=== PATIENT | female | born 1930 | race Caucasian/White ===

== ENCOUNTER 2020-01-18 21:46 | Inpatient (IN) | payer MEDICARE, BC ==
[~2020-01-18] VITALS: Ht 160 cm; Wt 71.7 kg
[~2020-01-18 21:46] MED LIST: AMIO200T61 PO; CLOB15CR4 TP; DIPH-186 PO; FURO40TA4 PO; HYDR-3964 PO; LANTUS SUBCUT; LISI-600 PO; MOME45CR3 TP
--- NOTE | 2020-01-18 21:59 | NUR ---
MD at bedside to evaluate pt. Course of event reviewed with provider. Pt. answered examination quesetions without difficulty. Pt. to have x-ray of affected extremity. No CT scan required at this time per MD. Trauma alert called off.
[2020-01-18] MEDS ORDERED: TETanus/Pertussis (Acell)/Diphther VAC/PF (Tdap-Adult) 0.5ml syringe IMVAC ONE (22:05)
[2020-01-18] MEDS ORDERED: ondansetron/PF 4mg/2ml inj IV PRN ×2 (22:05→23:35)
[2020-01-18] MEDS ORDERED: morphine 4 MG/ML inj SYRINge IV PRN (22:05)
[2020-01-18 22:17] LABS: BASOPHILS # (AUTO) 0.1 X10'3 (0-0.2); EOSINOPHILS # (AUTO) 0.2 X10'3 (0-0.9); EOSINOPHILS % (AUTO) 3.7 % (0-6); HEMATOCRIT 35.5 % (35.0-45.0); HEMOGLOBIN 11.7 g/dl (12.0-16.0); LYMPHOCYTES # (AUTO) 1.4 X10'3 (1.1-4.8); LYMPHOCYTES % (AUTO) 22.9 % (21-51); MEAN CORPUSCULAR HEMOGLOBIN 26.3 PG (27.0-31.0); MEAN CORPUSCULAR HGB CONC 32.9 g/dL (33.0-36.5); MEAN CORPUSCULAR VOLUME 79.9 FL (78-98); MEAN PLATELET VOLUME 7.3 FL (7.4-10.4); MONOCYTES # (AUTO) 0.5 X10'3 (0-0.9); MONOCYTES % (AUTO) 8.8 % (2-12); NEUTROPHILS # (AUTO) 3.8 X10'3 (1.8-7.7); NEUTROPHILS % (AUTO) 63.6 % (42-75); PLATELET COUNT 277 X10'3 (140-440); RED BLOOD COUNT 4.44 X10'6 (4.20-5.60); RED CELL DISTRIBUTION WIDTH 20.2 % (11.5-14.5); WHITE BLOOD COUNT 5.9 X10'3 (4.5-11.0)
[2020-01-18 22:28] LABS: PARTIAL THROMBOPLASTIN TIME 33 SECONDS (22-32)
[2020-01-18 22:32] LABS: ALANINE AMINOTRANSFERASE 54 U/L (12-78); ALBUMIN 3.6 G/DL (3.4-5.0); ALKALINE PHOSPHATASE 105 IU/L (46-116); ANION GAP 9 (8-16); ASPARTATE AMINO TRANSFERASE 29 U/L (10-37); BILIRUBIN,TOTAL 0.3 MG/DL (0.1-1.0); BLOOD UREA NITROGEN 33 MG/DL (7-18); BUN/CREATININE RATIO 14.7 (6.6-38.0); CALCIUM 9.1 MG/DL (8.5-10.1); CHLORIDE 107 MMOL/L (99-107); CREATININE 2.25 MG/DL (0.40-0.90); GLUCOSE 204 MG/DL (70-104); POTASSIUM 4.6 MMOL/L (3.5-5.1); SODIUM 142 MMOL/L (135-145); TOTAL CARBON DIOXIDE 26.5 MMOL/L (24-32); TOTAL PROTEIN 7.1 G/DL (6.4-8.2); eGFR 21 ML/MIN
[2020-01-18] MEDS ORDERED: phytonadione inj. 10 MG in normal saline 100ml IV soln 99 ML IV ONE (23:10)
[2020-01-18] MEDS ORDERED: LANTUS SQ (23:13)
[2020-01-18] MEDS ORDERED: FURO40TA4 PO (23:13)
[2020-01-18] MEDS ORDERED: WARF1TAB9 PO (23:13)
[2020-01-18] MEDS ORDERED: ERGO500054 PO (23:13)
[2020-01-18] MEDS ORDERED: mag hydrox/Alum hydrox/simeth 30ml oral suspension PO PRN (23:35)
[2020-01-18] MEDS ORDERED: acetaminophen 325mg tablet PO PRN (23:35)
[2020-01-18] MEDS ORDERED: magnesium 2GM in 50ml NS 50 ML IV PRN (23:35)
[2020-01-18] MEDS ORDERED: magnesium hydroxide 30ml (MOM) UD suspension PO PRN (23:35)
[2020-01-18] MEDS ORDERED: potassium Cl 20 mEq SR tablet PO PRN ×2 (23:35)
[2020-01-18] MEDS ORDERED: LIDOcaine 2% 10ml TOPICAL JELLY (Urojet) TP ONE (23:35)
[2020-01-18] MEDS ORDERED: magnesium 4gm in 100ml NS 100 ML IV PRN (23:35)
[2020-01-18] MEDS ORDERED: potassium CL 10mEq/100ml bag 100 ML IV PRN ×2 (23:35)
[2020-01-18] MEDS ORDERED: magnesium Cl slow-release 64mg tablet PO PRN (23:35)
[2020-01-18 23:39] LABS: CLARITY,URINE CLEAR (Clear); COLOR,URINE YELLOW (Yellow); GLUCOSE, URINE NEGATIVE (Neg); KETONES,URINE NEGATIVE (Neg); LEUKOCYTE ESTERASE ,URINE NEGATIVE (Neg); NITRITES, URINE NEGATIVE (Neg); OCCULT BLOOD,URINE NEGATIVE (Neg); PROTEIN,URINE TRACE mg/dl (Neg); UROBILINOGEN,URINE 0.2 E.U/dL (0.2-1.0)
[2020-01-18 23:44] LABS: UA COLLECTION TYPE FOLEY CATH
[2020-01-18] MEDS: normal saline 1000ml 1,000 ML IV SCH (23:46)
[2020-01-19] VITALS (21 sets, daily range): BP systolic 136–199; BP diastolic 37–58
[2020-01-19] LABS: BACTERIA,URINE NONE SEEN /HPF (Neg); MUCUS STRANDS FEW /LPF (Neg); RBC,URINE 0-2 /HPF (0-2); SQUAMOUS EPITHELIAL CELL,UR FEW /LPF (FEW); TRANSITIONAL EPI CELLS,URINE FEW /HPF; WBC,URINE 0-4 /HPF (0-4)
--- NOTE | 2020-01-19 01:21 | NUR ---
Report given to me by Jose MASON and I will give report to Anabel once she is available.
--- NOTE | 2020-01-19 01:37 | NUR ---
Received report from Lakesha MASON.
[2020-01-19 01:40] LABS: ANISOCYTOSIS 3+; MICROCYTOSIS 1+; PLATELET ESTIMATE NORMAL
[2020-01-19] MEDS ORDERED: glucagon, human recombinant 1mg kit SUBCUT PRN (02:35)
[2020-01-19] MEDS ORDERED: MESSAGE TO PHARMACY PO ONE (02:35)
[2020-01-19] MEDS ORDERED: dextrose 50%-water 50ml dispensing syringe IV PRN ×2 (02:35)
[2020-01-19] MEDS ORDERED: dextrose ORAL solution 15 GM/59 ML bottle PO PRN ×2 (02:35)
[2020-01-19 03:16] LABS: HEMOGLOBIN A1C 7.9 % (4.5-6.2)
[2020-01-19] MEDS: morphine 2 MG/ML inj. syringe IV PRN ×2 (04:35→15:24)
--- NOTE | 2020-01-19 05:24 | NUR ---
PAGER ID: [phone] MESSAGE: Anabel canelo [phone]. Giuliana Astudillo in room 4009A. BP in ER 242/68, 206/57. BP now 209/50, 211/55, 204/53. Takes lisinopril at home. Pt is NPO. Can I get something PRN IV for high BP. Thank you
[2020-01-19] MEDS ORDERED: metoprolol tartrate 1mg/ml inj IV ONE (05:25)
[2020-01-19] MEDS: hydrALAZINE 20mg/ml inj. IV PRN (05:35)
--- NOTE | 2020-01-19 05:39 | NUR ---
I notified Dr. Guevara that we are unable to administer the IV Lopressor for b/p management on the Ortho floor. I informed her that we can give the Hydralazine IV that is scheduled PRN for B/P control. She said to give the Hydralazine for now and see what it does and if other b/p management is needed to call for further orders.
--- NOTE | 2020-01-19 06:26 | NUR ---
Problems reprioritized. Patient report given, questions answered & plan of care reviewed with Lydia MASON.
--- NOTE | 2020-01-19 06:41 | NUR ---
Received report from Anabel MASON
[2020-01-19 06:46] LABS: BASOPHILS % (AUTO) 0.2 % (0-1); EOSINOPHILS % (AUTO) 0 % (0-6); HEMATOCRIT 30.5 % (35.0-45.0); LYMPHOCYTES # (AUTO) 0.6 X10'3 (1.1-4.8); LYMPHOCYTES % (AUTO) 4.8 % (21-51); MEAN CORPUSCULAR HEMOGLOBIN 26.4 PG (27.0-31.0); MEAN CORPUSCULAR HGB CONC 32.6 g/dL (33.0-36.5); MEAN CORPUSCULAR VOLUME 80.9 FL (78-98); MEAN PLATELET VOLUME 7.5 FL (7.4-10.4); MONOCYTES # (AUTO) 0.6 X10'3 (0-0.9); MONOCYTES % (AUTO) 4.9 % (2-12); NEUTROPHILS # (AUTO) 10.8 X10'3 (1.8-7.7); NEUTROPHILS % (AUTO) 90.1 % (42-75); PLATELET COUNT 241 X10'3 (140-440); RED BLOOD COUNT 3.77 X10'6 (4.20-5.60); WHITE BLOOD COUNT 11.9 X10'3 (4.5-11.0)
[2020-01-19 07:15] LABS: ALANINE AMINOTRANSFERASE 54 U/L (12-78); ALBUMIN 3.3 G/DL (3.4-5.0); ALBUMIN/GLOBULIN RATIO 1.1 (1.1-1.5); ALKALINE PHOSPHATASE 86 IU/L (46-116); ANION GAP 8 (8-16); ASPARTATE AMINO TRANSFERASE 32 U/L (10-37); BILIRUBIN,TOTAL 0.5 MG/DL (0.1-1.0); BLOOD UREA NITROGEN 30 MG/DL (7-18); BUN/CREATININE RATIO 14.6 (6.6-38.0); CALCIUM 8.7 MG/DL (8.5-10.1); CHLORIDE 109 MMOL/L (99-107); CREATININE 2.06 MG/DL (0.40-0.90); GLUCOSE 238 MG/DL (70-104); MAGNESIUM 1.9 MG/DL (1.5-2.4); POTASSIUM 5.1 MMOL/L (3.5-5.1); SODIUM 144 MMOL/L (135-145); TOTAL CARBON DIOXIDE 26.9 MMOL/L (24-32); TOTAL PROTEIN 6.4 G/DL (6.4-8.2); eGFR 23 ML/MIN
[2020-01-19] MEDS: K and/or MAG REPLACEMENT MC SCH ×2 (08:00→20:00)
[2020-01-19] MEDS: lisinopril 20mg tablet PO SCH ×2 (08:02→20:36)
[2020-01-19] MEDS: amiodarone 200mg tablet PO SCH (08:02)
[2020-01-19] MEDS: LORazepam 0.5 MG tablet PO PRN ×2 (09:29→20:37)
[2020-01-19] MEDS: normal saline 1000ml 1,000 ML IV SCH ×3 (09:32→22:35)
[2020-01-19] MEDS ORDERED: meperidine/PF 25mg/ml syringe IV PRN ×3 (17:50)
[2020-01-19] MEDS ORDERED: ringers solution, lacted 1,000 ML IV SCH (17:50)
[2020-01-19] MEDS ORDERED: proCHLORperazine 10 MG/2 ml inj IV PRN (17:50)
[2020-01-19] MEDS ORDERED: morphine 4 MG/ML inj SYRINge IV PRN (17:50)
[2020-01-19] MEDS ORDERED: ondansetron/PF 4mg/2ml inj IV PRN (17:50)
[2020-01-19] MEDS ORDERED: morphine 2 MG/ML inj. syringe IV PRN (17:50)
[2020-01-19] MEDS ORDERED: midazolam 2 mg/2 ml injection ONE (18:00)
[2020-01-19] MEDS ORDERED: fentaNYL/PF 50MCG/1 ML 2ML syringe ONE (18:00)
--- NOTE | 2020-01-19 18:16 | NUR ---
Patient in room ORTHO 4009. I have received report from Lydia MASON and had the opportunity to ask questions and assume patient care.
[2020-01-19] MEDS ORDERED: ceFAZolin 1000mg inj ONE ×2 (18:30)
[2020-01-19] MEDS ORDERED: ePHEDrine 50MG/ML INJ. ONE (18:45)
--- NOTE | 2020-01-19 19:18 | NUR ---
Received from OR via BED, accompanied by Anesthesiologist DR NORWOOD and report given by Anesthesiologist. PT DROWSY, DENIES PAIN, RIGHT HIP AND UPPER THIGH W/PRANAV SMITH CDI, DERMATOME LEVEL L-1. Addendum: 01/19/20 at 1950 by Jessica Rangel RN Amended: Links added.
--- NOTE | 2020-01-19 19:57 | NUR ---
Received report from Jessica MASON in recovery. Patient will be brought to O/N.
--- NOTE | 2020-01-19 20:18 | NUR ---
Report called to receiving nurse. Transferred via BED, NO Belongings, RECEIVING RN AT BEDSIDE TO RECEIVE PT, BLL, CALL LIGHT GIVEN, SIDE RAILS UP X 2. Special Issues communicated to receiving nurse. YES. Addendum: 01/19/20 at 2027 by Jessica Rangel RN Amended: Links added.
--- NOTE | 2020-01-19 20:21 | NUR ---
Received patient from recovery. She is in bed resting. In no apparent distress.
[2020-01-19] MEDS: insulin glargine (Lantus) pen - multi-dose SQ SCH (21:42)
[2020-01-19] MEDS: vancomycin/NS 1 GM ADD-VANTAGE 250 ML IV SCH (22:33)
[2020-01-20 00:15] VITALS: BP 170/54
--- NOTE | 2020-01-20 00:22 | NUR ---
PAGER ID: [phone] MESSAGE: Anabel lemos [phone], Giuliana Astudillo in room 4009A is having a lot of pain. You had ordered morphine for her pain last night but the patient would like [place] instead because that is what she takes at home. Thank you
[2020-01-20] MEDS: HYDROcodone/acetaminophen 5mg/325mg tablet PO PRN ×2 (00:44→16:24)
[2020-01-20 02:00] VITALS: BP 151/40
[2020-01-20 06:00] VITALS: BP 139/53
--- NOTE | 2020-01-20 06:09 | NUR ---
Problems reprioritized. Patient report given, questions answered & plan of care reviewed with Morena MASON.
[2020-01-20 07:00] LABS: BASOPHILS % (AUTO) 0.5 % (0-1); EOSINOPHILS % (AUTO) 0.3 % (0-6); HEMATOCRIT 26.9 % (35.0-45.0); HEMOGLOBIN 8.6 g/dl (12.0-16.0); LYMPHOCYTES # (AUTO) 0.9 X10'3 (1.1-4.8); LYMPHOCYTES % (AUTO) 8.3 % (21-51); MEAN CORPUSCULAR HEMOGLOBIN 26.3 PG (27.0-31.0); MEAN CORPUSCULAR HGB CONC 32.1 g/dL (33.0-36.5); MEAN CORPUSCULAR VOLUME 81.9 FL (78-98); MEAN PLATELET VOLUME 7.4 FL (7.4-10.4); MONOCYTES # (AUTO) 1.2 X10'3 (0-0.9); MONOCYTES % (AUTO) 11.2 % (2-12); NEUTROPHILS # (AUTO) 8.4 X10'3 (1.8-7.7); NEUTROPHILS % (AUTO) 79.7 % (42-75); PLATELET COUNT 193 X10'3 (140-440); RED BLOOD COUNT 3.29 X10'6 (4.20-5.60); RED CELL DISTRIBUTION WIDTH 20.2 % (11.5-14.5); WHITE BLOOD COUNT 10.6 X10'3 (4.5-11.0)
[2020-01-20 07:23] LABS: ALANINE AMINOTRANSFERASE 38 U/L (12-78); ALBUMIN 2.7 G/DL (3.4-5.0); ALBUMIN/GLOBULIN RATIO 0.9 (1.1-1.5); ALKALINE PHOSPHATASE 70 IU/L (46-116); ANION GAP 7 (8-16); ASPARTATE AMINO TRANSFERASE 22 U/L (10-37); BILIRUBIN,TOTAL 0.5 MG/DL (0.1-1.0); BLOOD UREA NITROGEN 22 MG/DL (7-18); BUN/CREATININE RATIO 12.4 (6.6-38.0); CALCIUM 8.3 MG/DL (8.5-10.1); CHLORIDE 112 MMOL/L (99-107); CREATININE 1.77 MG/DL (0.40-0.90); GLUCOSE 176 MG/DL (70-104); MAGNESIUM 1.8 MG/DL (1.5-2.4); POTASSIUM 4.6 MMOL/L (3.5-5.1); SODIUM 145 MMOL/L (135-145); TOTAL CARBON DIOXIDE 25.6 MMOL/L (24-32); TOTAL PROTEIN 5.7 G/DL (6.4-8.2); eGFR 27 ML/MIN
[2020-01-20] MEDS: vancomycin/NS 1 GM ADD-VANTAGE 250 ML IV SCH (07:43)
[2020-01-20 07:48] LABS: PLATELET ESTIMATE NORMAL
[2020-01-20] MEDS: amiodarone 200mg tablet PO SCH (07:48)
[2020-01-20] MEDS: lisinopril 20mg tablet PO SCH ×2 (07:48→20:46)
[2020-01-20 07:49] LABS: ANISOCYTOSIS 3+; LARGE PLATELETS FEW
[2020-01-20] MEDS: insulin Lispro (HumaLOG) vial - multi-dose SQ SCH ×2 (09:08→14:07)
[2020-01-20] MEDS ORDERED: ondansetron 4mg rapidly disintigrating tab PO PRN (13:45)
--- NOTE | 2020-01-20 15:06 | NUR ---
DM consult, A1c 7.9; met at bedside and given written DM education handout with verbal review. Pt had c/o constipation r/t pain medication, takes miralax at home; spoke with bedside RN states that she has miralax available HS. Addendum: 01/20/20 at [address] Amended: Links added.
[2020-01-20 18:00] VITALS: BP 167/68
[2020-01-20] MEDS: K and/or MAG REPLACEMENT MC SCH (20:00)
[2020-01-20] MEDS: insulin glargine (Lantus) pen - multi-dose SQ SCH (20:51)
[2020-01-20] MEDS: polyethylene glycol 3350 17gm powd pack PO PRN (20:53)
[2020-01-20 22:00] VITALS: BP 123/100
[2020-01-21] MEDS: HYDROcodone/acetaminophen 5mg/325mg tablet PO PRN ×3 (00:29→09:11)
[2020-01-21] MEDS: normal saline 1000ml 1,000 ML IV SCH ×3 (01:32→21:32)
[2020-01-21 06:00] VITALS: BP 127/56
[2020-01-21] MEDS: K and/or MAG REPLACEMENT MC SCH ×2 (08:00→20:00)
[2020-01-21 08:34] LABS: BASOPHILS # (AUTO) 0.1 X10'3 (0-0.2); BASOPHILS % (AUTO) 0.6 % (0-1); EOSINOPHILS # (AUTO) 0.2 X10'3 (0-0.9); EOSINOPHILS % (AUTO) 1.7 % (0-6); HEMOGLOBIN 8.4 g/dl (12.0-16.0); LYMPHOCYTES # (AUTO) 1.2 X10'3 (1.1-4.8); LYMPHOCYTES % (AUTO) 11.9 % (21-51); MEAN CORPUSCULAR HEMOGLOBIN 26.6 PG (27.0-31.0); MEAN CORPUSCULAR HGB CONC 32.4 g/dL (33.0-36.5); MEAN CORPUSCULAR VOLUME 82.1 FL (78-98); MEAN PLATELET VOLUME 7.3 FL (7.4-10.4); MONOCYTES % (AUTO) 9.3 % (2-12); NEUTROPHILS # (AUTO) 7.9 X10'3 (1.8-7.7); NEUTROPHILS % (AUTO) 76.5 % (42-75); PLATELET COUNT 225 X10'3 (140-440); RED BLOOD COUNT 3.17 X10'6 (4.20-5.60); RED CELL DISTRIBUTION WIDTH 20.2 % (11.5-14.5); WHITE BLOOD COUNT 10.3 X10'3 (4.5-11.0)
[2020-01-21] MEDS: insulin Lispro (HumaLOG) vial - multi-dose SQ SCH ×3 (08:51→19:18)
[2020-01-21] MEDS: amiodarone 200mg tablet PO SCH (08:52)
[2020-01-21] MEDS: lisinopril 20mg tablet PO SCH ×2 (08:52→19:21)
[2020-01-21 09:14] LABS: ALANINE AMINOTRANSFERASE 30 U/L (12-78); ALBUMIN 2.5 G/DL (3.4-5.0); ALBUMIN/GLOBULIN RATIO 0.8 (1.1-1.5); ALKALINE PHOSPHATASE 69 IU/L (46-116); ANION GAP 9 (8-16); ASPARTATE AMINO TRANSFERASE 19 U/L (10-37); BILIRUBIN,TOTAL 0.5 MG/DL (0.1-1.0); BLOOD UREA NITROGEN 22 MG/DL (7-18); BUN/CREATININE RATIO 12.4 (6.6-38.0); CALCIUM 8.5 MG/DL (8.5-10.1); CHLORIDE 108 MMOL/L (99-107); CREATININE 1.78 MG/DL (0.40-0.90); GLUCOSE 184 MG/DL (70-104); MAGNESIUM 1.8 MG/DL (1.5-2.4); POTASSIUM 4.5 MMOL/L (3.5-5.1); SODIUM 141 MMOL/L (135-145); TOTAL CARBON DIOXIDE 24.5 MMOL/L (24-32); TOTAL PROTEIN 5.8 G/DL (6.4-8.2); eGFR 27 ML/MIN
[2020-01-21 10:00] VITALS: BP 128/34
[2020-01-21 10:40] LABS: PLATELET ESTIMATE NORMAL
[2020-01-21 10:41] LABS: ANISOCYTOSIS 3+; HYPOCHROMASIA 1+
[2020-01-21] MEDS: polyethylene glycol 3350 17gm powd pack PO PRN (11:58)
[2020-01-21] MEDS: enoxaparin 40mg/0.4ml syringe SUBCUT SCH (12:11)
[2020-01-21 18:00] VITALS: BP 154/40
--- NOTE | 2020-01-21 18:27 | NUR ---
Problems reprioritized. Patient report given, questions answered & plan of care reviewed with Anjali.
[2020-01-21] MEDS: insulin glargine (Lantus) pen - multi-dose SQ SCH (21:22)
[2020-01-21 22:00] VITALS: BP 181/42
--- NOTE | 2020-01-22 | NUR ---
PT C/O ITCHNESS UNDER SCD'S AND REQUESTED TO TAKE THEM OFF
[2020-01-22] MEDS: HYDROcodone/acetaminophen 5mg/325mg tablet PO PRN (05:14)
[2020-01-22 06:00] VITALS: BP 189/43
--- NOTE | 2020-01-22 06:00 | NUR ---
Patient in room ORTHO 4008. I have received report from Frida MASON and had the opportunity to ask questions and assume patient care.
[2020-01-22] MEDS: hydrALAZINE 20mg/ml inj. IV PRN (06:08)
[2020-01-22 06:09] VITALS: BP 171/47
--- NOTE | 2020-01-22 06:30 | NUR ---
Problems reprioritized. Patient report given, questions answered & plan of care reviewed with ISABELLA HANSON.
[2020-01-22] MEDS: normal saline 1000ml 1,000 ML IV SCH (07:32)
[2020-01-22 07:35] LABS: BASOPHILS % (AUTO) 0.4 % (0-1); EOSINOPHILS # (AUTO) 0.1 X10'3 (0-0.9); EOSINOPHILS % (AUTO) 1.6 % (0-6); HEMATOCRIT 24.5 % (35.0-45.0); LYMPHOCYTES # (AUTO) 0.9 X10'3 (1.1-4.8); LYMPHOCYTES % (AUTO) 10.2 % (21-51); MEAN CORPUSCULAR HEMOGLOBIN 26.4 PG (27.0-31.0); MEAN CORPUSCULAR HGB CONC 32.8 g/dL (33.0-36.5); MEAN CORPUSCULAR VOLUME 80.4 FL (78-98); MEAN PLATELET VOLUME 7.5 FL (7.4-10.4); MONOCYTES # (AUTO) 0.8 X10'3 (0-0.9); MONOCYTES % (AUTO) 9.5 % (2-12); NEUTROPHILS # (AUTO) 6.6 X10'3 (1.8-7.7); NEUTROPHILS % (AUTO) 78.3 % (42-75); PLATELET COUNT 235 X10'3 (140-440); RED BLOOD COUNT 3.05 X10'6 (4.20-5.60); RED CELL DISTRIBUTION WIDTH 19.5 % (11.5-14.5); WHITE BLOOD COUNT 8.5 X10'3 (4.5-11.0)
[2020-01-22] MEDS: enoxaparin 40mg/0.4ml syringe SUBCUT SCH (07:35)
[2020-01-22] MEDS: lisinopril 20mg tablet PO SCH (07:35)
[2020-01-22] MEDS: amiodarone 200mg tablet PO SCH (07:35)
[2020-01-22 07:53] LABS: ALANINE AMINOTRANSFERASE 25 U/L (12-78); ALBUMIN 2.4 G/DL (3.4-5.0); ALBUMIN/GLOBULIN RATIO 0.7 (1.1-1.5); ALKALINE PHOSPHATASE 71 IU/L (46-116); ANION GAP 6 (8-16); ASPARTATE AMINO TRANSFERASE 16 U/L (10-37); BILIRUBIN,TOTAL 0.4 MG/DL (0.1-1.0); BLOOD UREA NITROGEN 30 MG/DL (7-18); BUN/CREATININE RATIO 17.1 (6.6-38.0); CALCIUM 8.4 MG/DL (8.5-10.1); CHLORIDE 107 MMOL/L (99-107); CREATININE 1.75 MG/DL (0.40-0.90); GLUCOSE 155 MG/DL (70-104); MAGNESIUM 2.3 MG/DL (1.5-2.4); POTASSIUM 4.4 MMOL/L (3.5-5.1); SODIUM 140 MMOL/L (135-145); TOTAL CARBON DIOXIDE 26.9 MMOL/L (24-32); TOTAL PROTEIN 5.7 G/DL (6.4-8.2); eGFR 27 ML/MIN
[2020-01-22] MEDS: K and/or MAG REPLACEMENT MC SCH (08:00)
[2020-01-22] MEDS: insulin Lispro (HumaLOG) vial - multi-dose SQ SCH (09:28)
[2020-01-22 09:49] LABS: ANISOCYTOSIS 3+; PLATELET ESTIMATE NORMAL
[2020-01-22 09:50] LABS: HYPOCHROMASIA 1+
[2020-01-22 10:00] VITALS: BP 146/37
--- NOTE | 2020-01-22 12:26 | NUR ---
Problems reprioritized. Patient report given, questions answered & plan of care reviewed with Alfredo MASON at [facility].
== END 2020-01-22 12:50 | DRG 480 ==
LOC: ER 21:47 → ED HOLD 23:32 → ORTHO 4S 01-19 01:59
PROVIDERS: ADMIT Family Medicine; ATTEND Internal Medicine
PROC: 30233N1 Transfusion of Nonautologous Red Blood Cells into Peripheral Vein, Percutaneous Approach (ICD-10-PCS; 2020-01-19)
PROC: 5A09357 Assistance with Respiratory Ventilation, Less than 24 Consecutive Hours, Continuous Positive Airway Pressure (ICD-10-PCS; 2020-01-19)
PROC: 0QS606Z Reposition Right Upper Femur with Intramedullary Internal Fixation Device, Open Approach (ICD-10-PCS; principal; 2020-01-19 18:12)
PROC: 5A09357 Assistance with Respiratory Ventilation, Less than 24 Consecutive Hours, Continuous Positive Airway Pressure (ICD-10-PCS; 2020-01-20)
PROC: 5A09357 Assistance with Respiratory Ventilation, Less than 24 Consecutive Hours, Continuous Positive Airway Pressure (ICD-10-PCS; 2020-01-22)
DX: S72.144A Nondisplaced intertrochanteric fracture of right femur, initial encounter for closed fracture (principal); N17.0 Acute kidney failure with tubular necrosis; D62 Acute posthemorrhagic anemia; I10 Essential (primary) hypertension; E11.9 Type 2 diabetes mellitus without complications; I48.91 Unspecified atrial fibrillation; I48.0 Paroxysmal atrial fibrillation; S51.811A Laceration without foreign body of right forearm, initial encounter; Z79.01 Long term (current) use of anticoagulants; Z79.899 Other long term (current) drug therapy; Z82.49 Family history of ischemic heart disease and other diseases of the circulatory system; Z82.5 Family history of asthma and other chronic lower respiratory diseases; Z83.3 Family history of diabetes mellitus; Z95.1 Presence of aortocoronary bypass graft; Y93.89 Activity, other specified; Y99.8 Other external cause status; W01.0XXA Fall on same level from slipping, tripping and stumbling without subsequent striking against object, initial encounter; Y92.000 Kitchen of unspecified non-institutional (private) residence as the place of occurrence of the external cause; E86.0 Dehydration
CPT/HCPCS: 36415; 36430; 71045; 73502; 76000; 80053; 81001; 82948; 83036; 83735; 85025; 85610; 85730; 86885; 86900; 86901; 87081; 90715; 93005; 97110; 97112; 97116; 97161; 97530; 99285; A4215; A6258; A6449; A7000; C1713; G0378; J0360; J0690; J1650; J1815; J2250; J2270; J2405; J3010; J3370; J3430; J7030; P9059

== ENCOUNTER 2020-10-24 11:28 | Emergency (ER) | payer MEDICARE, BC ==
[~2020-10-24] VITALS: Ht 160 cm; Wt 61.4 kg
[~2020-10-24 11:28] MED LIST changes: -CLOB15CR4 TP; -DIPH-186 PO; +ERGO500054 PO; -HYDR-3964 PO; +LANTUS SQ; -LANTUS SUBCUT; -LISI-600 PO; +LISI20TA28 PO; -MOME45CR3 TP; +WARF1TAB9 PO
[2020-10-24] MEDS ORDERED: lactulose 20gm/30ml cup PO ONE (12:00)
[2020-10-24] MEDS ORDERED: normal saline 1000ML IV soln IVB ONE (12:00)
[2020-10-24] MEDS ORDERED: magnesium hydroxide 30ml (MOM) UD suspension PO ONE (12:00)
[2020-10-24 12:14] LABS: BASOPHILS % (AUTO) 0.5 % (0-1); EOSINOPHILS # (AUTO) 0.1 X10'3 (0-0.9); EOSINOPHILS % (AUTO) 1.5 % (0-6); HEMATOCRIT 36.5 % (35.0-45.0); HEMOGLOBIN 11.9 g/dl (12.0-16.0); LYMPHOCYTES # (AUTO) 0.8 X10'3 (1.1-4.8); LYMPHOCYTES % (AUTO) 13.2 % (21-51); MEAN CORPUSCULAR HEMOGLOBIN 27.5 PG (27.0-31.0); MEAN CORPUSCULAR HGB CONC 32.7 g/dL (33.0-36.5); MEAN CORPUSCULAR VOLUME 84.1 FL (78-98); MONOCYTES # (AUTO) 0.4 X10'3 (0-0.9); MONOCYTES % (AUTO) 7.1 % (2-12); NEUTROPHILS # (AUTO) 4.9 X10'3 (1.8-7.7); NEUTROPHILS % (AUTO) 77.7 % (42-75); PLATELET COUNT 297 X10'3 (140-440); RED BLOOD COUNT 4.34 X10'6 (4.20-5.60); RED CELL DISTRIBUTION WIDTH 13.8 % (11.5-14.5); WHITE BLOOD COUNT 6.3 X10'3 (4.5-11.0)
--- NOTE | 2020-10-24 12:16 | NUR ---
pt to ct
--- NOTE | 2020-10-24 12:26 | NUR ---
TERESITA ABAD FROM CT.
[2020-10-24 12:27] LABS: ALANINE AMINOTRANSFERASE 57 U/L (12-78); ALBUMIN 3.4 G/DL (3.4-5.0); ALBUMIN/GLOBULIN RATIO 0.9 (1.1-1.5); ALKALINE PHOSPHATASE 138 IU/L (46-116); ANION GAP 10 (8-16); ASPARTATE AMINO TRANSFERASE 49 U/L (10-37); BILIRUBIN,TOTAL 0.4 MG/DL (0.1-1.0); BLOOD UREA NITROGEN 27 MG/DL (7-18); CALCIUM 9.4 MG/DL (8.5-10.1); CHLORIDE 105 MMOL/L (99-107); GLUCOSE 136 MG/DL (70-104); POTASSIUM 4.1 MMOL/L (3.5-5.1); SODIUM 142 MMOL/L (135-145); TOTAL CARBON DIOXIDE 26.6 MMOL/L (24-32); TOTAL PROTEIN 7.3 G/DL (6.4-8.2); eGFR 27 ML/MIN
[2020-10-24 12:47] LABS: CLARITY,URINE CLEAR (Clear); COLOR,URINE YELLOW (Yellow); GLUCOSE, URINE NEGATIVE (Neg); KETONES,URINE NEGATIVE (Neg); LEUKOCYTE ESTERASE ,URINE NEGATIVE (Neg); NITRITES, URINE NEGATIVE (Neg); OCCULT BLOOD,URINE NEGATIVE (Neg); PROTEIN,URINE TRACE mg/dl (Neg); UROBILINOGEN,URINE 0.2 E.U/dL (0.2-1.0)
[2020-10-24 12:53] LABS: UA COLLECTION TYPE STRAIGHT CATH
[2020-10-24 12:54] LABS: BACTERIA,URINE NONE SEEN /HPF (Neg); MUCUS STRANDS FEW /LPF (Neg); RBC,URINE NONE SEEN /HPF (0-2); SQUAMOUS EPITHELIAL CELL,UR FEW /LPF (FEW); WBC,URINE 0-4 /HPF (0-4)
[2020-10-24 13:26] VITALS: BP 171/68
== END 2020-10-24 13:18 | disposition home or self-care (01) ==
LOC: ER 11:28
DX: K59.00 Constipation, unspecified (principal); M54.9 Dorsalgia, unspecified; I48.91 Unspecified atrial fibrillation; I10 Essential (primary) hypertension; G47.30 Sleep apnea, unspecified; E11.9 Type 2 diabetes mellitus without complications; Z90.49 Acquired absence of other specified parts of digestive tract; Z98.61 Coronary angioplasty status; Z98.890 Other specified postprocedural states; Z88.8 Allergy status to other drugs, medicaments and biological substances; Z79.899 Other long term (current) drug therapy; Z79.4 Long term (current) use of insulin
CPT/HCPCS: 36415; 74176; 80053; 81001; 85025; 96360; 99284; J7030

== ENCOUNTER 2022-02-07 10:46 | Emergency (ER) | payer MEDICARE, BC ==
[~2022-02-07] VITALS: Ht 162.6 cm; Wt 64.0 kg
[~2022-02-07 10:46] MED LIST changes: +ATOR20TA66 PO; +COR3.125T PO; -FURO40TA4 PO; +HYDR-3964 PO; +NITR0.4T51 SL; +ONDA8TAB13 PO; +WARF1TAB83 PO
[2022-02-07 11:41] VITALS: BP 115/54
[2022-02-07 14:42] LABS: BASOPHILS % (AUTO) 0.3 % (0-1); EOSINOPHILS % (AUTO) 0.3 % (0-6); HEMATOCRIT 42.1 % (35.0-45.0); HEMOGLOBIN 13.9 g/dl (12.0-16.0); LYMPHOCYTES # (AUTO) 1.1 X10'3 (1.1-4.8); LYMPHOCYTES % (AUTO) 10.1 % (21-51); MEAN CORPUSCULAR HEMOGLOBIN 28.1 PG (27.0-31.0); MEAN CORPUSCULAR HGB CONC 33.1 g/dL (33.0-36.5); MEAN PLATELET VOLUME 7.5 FL (7.4-10.4); MONOCYTES # (AUTO) 0.7 X10'3 (0-0.9); MONOCYTES % (AUTO) 6.6 % (2-12); NEUTROPHILS # (AUTO) 9.2 X10'3 (1.8-7.7); NEUTROPHILS % (AUTO) 82.7 % (42-75); PLATELET COUNT 319 X10'3 (140-440); RED BLOOD COUNT 4.96 X10'6 (4.20-5.60); RED CELL DISTRIBUTION WIDTH 14.1 % (11.5-14.5); WHITE BLOOD COUNT 11.2 X10'3 (4.5-11.0)
[2022-02-07 15:07] LABS: ALANINE AMINOTRANSFERASE 29 U/L (12-78); ALBUMIN 3.9 G/DL (3.4-5.0); ALBUMIN/GLOBULIN RATIO 0.9 (1.1-1.5); ALKALINE PHOSPHATASE 99 IU/L (46-116); ANION GAP 11 (8-16); ASPARTATE AMINO TRANSFERASE 27 U/L (10-37); BILIRUBIN,TOTAL 0.5 MG/DL (0.1-1.0); BLOOD UREA NITROGEN 34 MG/DL (7-18); BUN/CREATININE RATIO 12.8 (6.6-38.0); CALCIUM 9.3 MG/DL (8.5-10.1); CHLORIDE 103 MMOL/L (99-107); CREATININE 2.65 MG/DL (0.40-0.90); GLUCOSE 135 MG/DL (70-104); LIPASE 208 U/L (73-393); POTASSIUM 4.2 MMOL/L (3.5-5.1); SODIUM 137 MMOL/L (135-145); TOTAL CARBON DIOXIDE 22.9 MMOL/L (24-32); TOTAL PROTEIN 8.1 G/DL (6.4-8.2); eGFR 17 ML/MIN
[2022-02-07 19:16] LABS: CLARITY,URINE CLEAR (Clear); COLOR,URINE YELLOW (Yellow); GLUCOSE, URINE NEGATIVE (Neg); KETONES,URINE NEGATIVE (Neg); LEUKOCYTE ESTERASE ,URINE NEGATIVE (Neg); NITRITES, URINE NEGATIVE (Neg); OCCULT BLOOD,URINE NEGATIVE (Neg); PH,URINE 5.5 (4.8-8.0); PROTEIN,URINE NEGATIVE (Neg); UROBILINOGEN,URINE 0.2 E.U/dL (0.2-1.0)
[2022-02-07 19:27] LABS: UA COLLECTION TYPE NON-SPECIFIED
[2022-02-08] MEDS ORDERED: FURO20TA4 PO (15:36)
[2022-02-08] MEDS ORDERED: NIFE60TA79 PO (15:36)
[2022-02-08] MEDS ORDERED: ATOR20TA66 PO (15:37)
[2022-02-08] MEDS ORDERED: NITR0.4T51 SL ×2 (15:39→15:40)
[2022-02-08] MEDS ORDERED: ONDA-103 PO (15:41)
== END 2022-02-07 22:10 | disposition home or self-care (01) ==
LOC: ER 10:46
DX: R53.1 Weakness (principal); G89.29 Other chronic pain; I11.9 Hypertensive heart disease without heart failure; E78.00 Pure hypercholesterolemia, unspecified; Z88.8 Allergy status to other drugs, medicaments and biological substances; Z79.899 Other long term (current) drug therapy; Z79.82 Long term (current) use of aspirin
CPT/HCPCS: 99284; J7040; 36415; 80053; 81003; 82948; 83690; 83735; 84484; 85025; 93005